=== PATIENT | female | born 1985 | race African-American/Black ===

== ENCOUNTER 2018-09-27 02:07 | Emergency (ER) | payer MEDICAID ==
[2018-09-27] MEDS ORDERED: Ketorolac 60 MG/2 ML SDV IM ONE (03:43)
--- NOTE | 2018-09-27 03:56 | EDM.PDOC ---
ED HPI GENERAL MEDICAL PROBLEM - General Chief Complaint: Back Pain or Injury Stated Complaint: BACK PAIN Time Seen by Provider: 09/27/18 03:53 Source of Information: Reports: Patient - History of Present Illness INITIAL COMMENTS - FREE TEXT/NARRATIVE: HISTORY AND PHYSICAL: History of present illness: [Patient presents with pain involving right shoulder girdle as well as right pectoralis major reproducible on palpation worsened by movement of her right arm no fever nausea vomiting chills sweats no trauma or injury arm neck or jaw no left-sided pain no diaphoresis or shortness of breath ] Review of systems: As per history of present illness and below otherwise all systems reviewed and negative. Past medical history: As per history of present illness and as reviewed below otherwise noncontributory. Surgical history: As per history of present illness and as reviewed below otherwise noncontributory. Social history: No reported history of drug or alcohol abuse. Family history: As per history of present illness and as reviewed below otherwise noncontributory. Physical exam: HEENT: Atraumatic, normocephalic, pupils reactive, negative for conjunctival pallor or scleral icterus, mucous membranes moist, throat clear, neck supple, nontender, trachea midline. Lungs: Clear to auscultation, breath sounds equal bilaterally, chest nontender. On the left, reproducible chest tenderness on insertion of packed nature as well is over infraspinatus and paraspinous muscles of thoracic spine Heart: S1S2, regular, negative for clicks, rubs, or JVD. Abdomen: Soft, nondistended, nontender. Negative for masses or hepatosplenomegaly. Negative for costovertebral tenderness. Pelvis: Stable nontender. Genitourinary: Deferred. Rectal: Deferred. Extremities: Atraumatic, negative for cords or calf pain. Neurovascular unremarkable. Neuro: Awake, alert, oriented. Cranial nerves II through XII unremarkable. Cerebellum unremarkable. Motor and sensory unremarkable throughout. Exam nonfocal. Diagnostics: [Lumbar spine was originally ordered and canceled his x-rays back the patient does not want to wait for any imaging UA/hCG ] Therapeutics: [Adult 60 IM Toradol Flexeril ] Impression: [ muscle spasm ] Definitive disposition and diagnosis as appropriate pending reevaluation and review of above. Upper Back Pain Score (Numeric/FACES): 8 - Related Data Allergies Allergy/AdvReac Type Severity Reaction Status Date / Time No Known Allergies Allergy Verified 09/27/18 02:47 Home Meds: Home Meds . [No Known Home Meds] 09/27/18 [History] Past Medical History HEENT History: Reports: None Cardiovascular History: Reports: None Respiratory History: Reports: Asthma [employer] History: Reports: Musculoskeletal History: Reports: None Neurological History: Reports: None Psychiatric History: Reports: None Hematologic History: Reports: None Immunologic History: Reports: None Oncologic (Cancer) History: Reports: None Dermatologic History: Reports: None - Infectious Disease History Infectious Disease History: Reports: Chicken Pox - Past Surgical History Head Surgeries/Procedures: Reports: None GI Surgical History: Reports: Hernia, Abdominal, Hernia Repair/Other Female Surgical History: Reports: Section, Tubal Ligation Social & Family History - Tobacco Use Smoking Status *Q: Never Smoker - Caffeine Use Caffeine Use: Reports: Coffee - Recreational Drug Use Recreational Drug Use: No ED ROS GENERAL - Review of Systems Review Of Systems: See Below ED EXAM, GENERAL - Physical Exam Exam: See Below Course - Vital Signs Last Recorded V/S: Last Vital Signs Temp 97.3 F 09/27/18 02:43 Pulse 93 09/27/18 02:43 Resp BP 155/108 H 09/27/18 02:43 Pulse Ox 98 09/27/18 02:43 - Orders/Labs/Meds Orders: Active Orders 24 hr Category Date Time Status Lumbar Spine 2 or 3V [CR] Stat Exams 09/27/18 02:11 Stop Req Labs: Laboratory Tests 09/27/18 09/27/18 Range/Units 02:56 02:56 Urine Color YELLOW Urine Appearance CLEAR Urine pH 6.0 (5.0-8.0) Ur Specific [place] 1.020 (1.001-1.035) Urine Protein NEGATIVE (NEGATIVE) mg/dL Urine Glucose (UA) NEGATIVE (NEGATIVE) mg/dL Urine Ketones NEGATIVE (NEGATIVE) mg/dL Urine Occult Blood MODERATE H (NEGATIVE) Urine Nitrite NEGATIVE (NEGATIVE) Urine Bilirubin NEGATIVE (NEGATIVE) Urine Urobilinogen 0.2 (<2.0) EU/dL Ur Leukocyte Esterase NEGATIVE (NEGATIVE) Urine RBC 1-3 (0-2/HPF) Urine WBC 0-1 (0-5/HPF) Ur Epithelial Cells FEW (NONE-FEW) Urine Bacteria RARE (NEGATIVE) Urine HCG, Qual NEGATIVE (NEGATIVE) Meds: Medications Discontinued Medications Generic Name Dose Route Start Last Admin Trade Name Bertram PRN Reason Stop Dose Admin Ketorolac Tromethamine 60 mg 09/27/18 03:43 Toradol IM 09/27/18 03:44 ONETIME ONE Departure - Departure Time of Disposition: 03:55 Disposition: Home, Self-Care 01 Condition: Good Clinical Impression: Muscle spasm - Discharge Information Referrals: PCP,None [Primary Care Provider] - Additional Instructions: The following information is given to patients seen in the emergency department who are being discharged to home. This information is to outline your options for follow-up care. We provide all patients seen in our emergency department with a follow-up referral. The need for follow-up, as well as the timing and circumstances, are variable depending upon the specifics of your emergency department visit. If you don't have a primary care physician on staff, we will provide you with a referral. We always advise you to contact your personal physician following an emergency department visit to inform them of the circumstance of the visit and for follow-up with them and/or the need for any referrals to a consulting specialist. The emergency department will also refer you to a specialist when appropriate. This referral assures that you have the opportunity for follow-up care with a specialist. All of these measure are taken in an effort to provide you with optimal care, which includes your follow-up. Under all circumstances we always encourage you to contact your private physician who remains a resource for coordinating your care. When calling for follow-up care, please make the office aware that this follow-up is from your recent emergency room visit. If for any reason you are refused follow-up, please contact the [facility] emergency department at and asked to speak to the emergency department charge nurse. - My Orders Last 24 Hours: My Active Orders 09/27/18 02:11 Lumbar Spine 2 or 3V [CR] Stat - Assessment/Plan Last 24 Hours: My Active Orders 09/27/18 02:11 Lumbar Spine 2 or 3V [CR] Stat
== END 2018-09-27 04:09 | disposition home or self-care (01) ==
LOC: MW.ED 02:07
DX: M62.838 Other muscle spasm (principal)
CPT/HCPCS: 81001; 81025; 96372; 99283; J1885

== ENCOUNTER 2020-10-22 10:55 | Emergency (ER) | payer SELFPAY ==
[2020-10-22] MEDS ORDERED: Sodium Chloride 0.9% 1,000 ML IV ONE (11:30)
[2020-10-22 12:02] LABS: BLOOD UREA NITROGEN,BUN 11 mg/dL (7.0-18.0); CARBON DIOXIDE,CO2 27.3 mmol/L (21.0-32.0); CHLORIDE,CL 102 mmol/L (98-107); GLUCOSE RANDOM 105 mg/dL (74-106); POTASSIUM,K 3.6 mmol/L (3.5-5.1); SODIUM,NA 140 mmol/L (136-145)
--- NOTE | 2020-10-22 13:28 | CT ---
HISTORY: Right lower quadrant/flank pain. TECHNIQUE: Noncontrast CT of the abdomen and pelvis. COMPARISON: No prior. FINDINGS: No focal liver parenchymal abnormality. Small gallstone within a not overly distended gallbladder. Spleen and adrenal glands are normal. No focal pancreatic abnormality. There is no renal calculus on either side. No hydronephrosis. No ureteral calculus. Multiple pelvic calcifications likely represent phleboliths. Urinary bladder does not appear excessively distended. - No small bowel obstruction. Extensive colonic diverticulosis without acute diverticulitis. Appendix measures 6-7 millimeters diameter. No specific periappendiceal inflammatory changes to suggest appendicitis. Small fat containing umbilical and supraumbilical hernias. There is asymmetry in the right compared to left ovarian size which could relate to the presence of a right ovarian cyst. There is no abdominal aortic aneurysm. - Lung bases are clear. - Degenerative changes of the hips. Degenerative arthrosis of the sacroiliac joints. There is asymmetric sclerosis about the left sacroiliac joint, much greater on the iliac side. This could relate to either osteitis condensans ilii or to chronic sacroiliitis. IMPRESSION: 1. Extensive colonic diverticulosis without diverticulitis. 2. Appendix measures 6-7 mm diameter without specific periappendiceal inflammatory changes. 3. Asymmetric right compared to left ovarian size may relate to an ovarian cyst. 4. No urinary calculus. 5. Gallstone within a not excessively distended gallbladder. Please note that all CT scans at this facility use dose modulation, iterative reconstruction, and/or weight-based dosing when appropriate to reduce radiation dose to as low as reasonably achievable. Dictated by Darrian Buenrostro MD @ 10/22/2020 1:27:[address] Darrian Buenrostro @ Oct 22 2020 1:27PM
--- NOTE | 2020-10-22 14:43 | US ---
INDICATION: CT showed cyst, follow-up rule out torsion, right lower quadrant pain TECHNIQUE: Ultrasound pelvis transabdominal and transvaginal for better assessment or to better visualize the endometrium. Real-time sonographic images with spectral and color Doppler imaging of the ovaries were obtained. COMPARISON: CT abdomen and pelvis October 22, 2020 FINDINGS: Uterus: 8.2 x 4.6 x 3.9 cm. Normal echotexture of the myometrium. No masses. Endometrium: Transvaginal imaging was performed to better evaluate the endometrium. Endometrial thickness measures 7.2 mm. There is minimal fluid in the lower uterine segment with likely small Nabothian cysts. Right ovary measures 2.3 x 2.8 x 2.2 cm and left ovary measures 2.7 x 1.9 x 2.4 cm. Mildly limited exam due to body habitus with likely a small dominant follicle within the right ovary measuring up to 2 centimeters. No evidence of ovarian cyst greater than 3 centimeters. Normal arterial and venous blood flow is demonstrated in both ovaries. Cul-de-sac: No significant free fluid. IMPRESSION: Redemonstration of previously seen dominant follicle within the right ovary. No evidence of ovarian cyst measuring greater than 3 centimeters. No evidence of torsion. Nonspecific fluid is seen in the endocervical and lower uterine segment canal. Dictated by Robbie Sanchez MD @ 10/22/2020 2:42:[address] Robbie Sanchez @ Oct 22 2020 2:42PM
[2020-10-22] MEDS ORDERED: cefTRIAXone 1 GM in Premix Bag 1 BAG IV ONE (14:54)
[2020-10-22 16:15] LABS: CORONAVIRUS COVID-19 NAA NEGATIVE (NEGATIVE); INFLUENZA A NAA NEGATIVE (NEGATIVE); INFLUENZA B NAA NEGATIVE (NEGATIVE)
--- NOTE | 2020-10-22 16:46 | EDM.PDOC ---
ED HPI GENERAL MEDICAL PROBLEM - General Chief Complaint: Abdominal Pain Stated Complaint: LOWER ABD PAIN Time Seen by Provider: 10/22/20 10:58 Source of Information: Reports: Patient History Limitations: Reports: No Limitations - History of Present Illness INITIAL COMMENTS - FREE TEXT/NARRATIVE: HISTORY AND PHYSICAL: History of present illness: Patient is a 35-year-old female who presents emergency room today with concern of right lower quadrant pain x2 to 3 days. Patient states initially, she was having right flank pain which radiated around to the side yesterday. Patient's states today, is primarily right lower quadrant pain. Patient states that she has felt nauseous. Patient states that she has not taken anything for her symptoms. Patient denies any other associated symptoms. Patient denies fever, chills, chest pain, shortness of breath, or cough. Denies headache, neck stiff ness, change in vision, syncope, or near syncope. Denies vomiting, diarrhea, constipation, or dysuria. Has not noted any blood in urine or stool. Patient has been eating and drinking appropriately. Review of systems: As per history of present illness and below otherwise all systems reviewed and negative. Past medical history: As per history of present illness and as reviewed below otherwise noncontributory. Surgical history: As per history of present illness and as reviewed below otherwise noncontributory. Social history: See social history for further information Family history: As per history of present illness and as reviewed below otherwise noncontributory. Physical exam: General: Patient is alert, oriented, and in no acute distress. Patient laying comfortably on exam table. Vitals stable and reviewed by me HEENT: Atraumatic, normocephalic, pupils equal and reactive bilaterally, negative for conjunctival pallor or scleral icterus, mucous membranes moist, TMs normal bilaterally, throat clear, neck supple, nontender, trachea midline. No drooling or trismus noted. No meningeal signs. No hot potato voice noted. Lungs: Clear to auscultation, breath sounds equal bilaterally, chest nontender. Heart: S1S2, regular rate and rhythm without overt murmur Abdomen: Soft, nondistended, moderate right lower quadrant tenderness without guarding, negative rebound. Negative for masses or hepatosplenomegaly. Negative for costovertebral tenderness. Pelvis: Stable nontender. Genitourinary: Deferred. Rectal: Deferred. Skin: Intact, warm, dry. No lesions or rashes noted. Extremities: Atraumatic, negative for cords or calf pain. Neurovascular unremarkable. Neuro: Awake, alert, oriented. Cranial nerves II through XII unremarkable. Cerebellum unremarkable. Motor and sensory unremarkable throughout. Exam nonfocal. Notes: Patient is a 35-year-old female, who presents to the ED today secondary to right lower quadrant abdominal pain x3 days. Upon arrival to the ED, patient is vitally stable and well-appearing on exam. However, she does have moderate right lower quadrant tenderness on exam. Will obtain lab work as well as abdominal pelvic CT. Mild derangements of CBC unremarkable. CMP unremarkable. Urinalysis does have 3-6 red blood cells, 2-5 white blood cells with 1+ bacteria and few epithelial cells. Negative leukocyte esterase, negative nitrate, negative hCG. Interpretation: Early urinary tract infection. Covid negative/influenza negative. Abdominal pelvic CT scan shows extensive colonic diverticulosis without diverticulitis. Appendix measuring upper limits of normal with 6 to 7 mm diameter without specific periappendiceal inflammatory changes. Asymmetric right compared to left ovarian size may be related to an ovarian cyst. No uterine calculus. Gallstones within a not excessively distended gallbladder. Due to the increase in size of the right ovary, will obtain transvaginal ultrasound. Transvaginal ultrasound shows a redemonstration of previously seen dominant follicle within the right ovary. No evidence of ovarian cyst measuring greater than 3 cm. No evidence of torsion. Nonspecific fluid is seen in the endocervical and lower uterine segment canal. Patient does have right lower quadrant tenderness on exam with an upper limit of normal appendix on CT. I did call and speak to the general surgeon on-call, Dr. Banda, and thoroughly discussed patient's case. He has come in to personally see and evaluate the patient. See his official consult note for further treatment and disposition. Given early urinary tract infection on urinalysis, will treat with Keflex and send urine for culture. Strict return precautions thoroughly discussed with patient. Signs symptoms that were prompt return to the ED thoroughly discussed with patient. Discussed importance for follow with the primary care provider and the general surgeon and to follow Dr. Banda's follow-up recommendations. Voices understanding and is agreeable to plan of care. Denies any further questions or concerns at this time. Diagnostics: CBC, CMP, UA, Lipase, Hcg, COVID Therapeutics: Patient was offered Toradol but she declines at this time, Rocephin, NS Prescription: Keflex Impression: Abdominal pain, right lower quadrant, unspecified Urinary tract infection, early Plan: 1. Take medication as prescribed. He can alternate ibuprofen and Tylenol as directed for pain and discomfort. 2. Follow-up with a primary care provider/general surgeon as discussed. Return to the ED as needed and as discussed. Definitive disposition and diagnosis as appropriate pending reevaluation and review of above. Right Lower Abdomen Pain Score (Numeric/FACES): 7 - Related Data Allergies Allergy/AdvReac Type Severity Reaction Status Date / Time No Known Allergies Allergy Verified 10/22/20 11:05 Home Meds: Home Meds cephALEXin [Keflex] 500 mg PO Q8H 7 Days #21 cap 10/22/20 [Rx] Past Medical History HEENT History: Reports: None Cardiovascular History: Reports: None Respiratory History: Reports: Asthma WHIPPER History: Reports: Musculoskeletal History: Reports: None Neurological History: Reports: None Psychiatric History: Reports: None Hematologic History: Reports: None Immunologic History: Reports: None Oncologic (Cancer) History: Reports: None Dermatologic History: Reports: None - Infectious Disease History Infectious Disease History: Reports: Chicken Pox - Past Surgical History Head Surgeries/Procedures: Reports: None GI Surgical History: Reports: Hernia, Abdominal, Hernia Repair/Other Female Surgical History: Reports: Section, Tubal Ligation Social & Family History - Tobacco Use Tobacco Use Status *Q: Never Tobacco User - Caffeine Use Caffeine Use: Reports: Coffee - Recreational Drug Use Recreational Drug Use: No ED ROS GENERAL - Review of Systems Review Of Systems: Comprehensive ROS is negative, except as noted in HPI. ED EXAM, GENERAL - Physical Exam Exam: See Below (see dictation) Course - Vital Signs Last Recorded V/S: Last Vital Signs Temp 98.6 F 10/22/20 11:05 Pulse 71 10/22/20 16:59 Resp 17 10/22/20 13:08 BP 157/91 H 10/22/20 13:08 Pulse Ox 98 10/22/20 16:59 - Orders/Labs/Meds Orders: Active Orders 24 hr Category Date Time Status Consult to Physician [CONS] Stat Cons 10/22/20 15:13 Active CULTURE URINE [MREF] Stat Lab 10/22/20 11:21 Received Labs: Laboratory Tests 10/22/20 10/22/20 10/22/20 Range/Units 05:27 11:20 11:20 WBC 5.65 (4.0-11.0) K/uL RBC 4.60 (4.30-5.90) M/uL Hgb 12.2 (12.0-16.0) g/dL Hct 38.5 (36.0-46.0) % MCV 83.7 (80.0-98.0) fL MCH 26.5 L (27.0-32.0) pg MCHC 31.7 (31.0-37.0) g/dL RDW Std Deviation 42.5 (28.0-62.0) fl RDW Coeff of Andrew 14 (11.0-15.0) % Plt Count 342 (150-400) K/uL MPV 10.20 (7.40-12.00) fL Neut % (Auto) 47.6 L (48.0-80.0) % Lymph % (Auto) 43.9 H (16.0-40.0) % [place] % (Auto) 5.8 (0.0-15.0) % Eos % (Auto) 2.3 (0.0-7.0) % Baso % (Auto) 0.4 (0.0-1.5) % Neut # (Auto) 2.7 (1.4-5.7) K/uL Lymph # (Auto) 2.5 H (0.6-2.4) K/uL [place] # (Auto) 0.3 (0.0-0.8) K/uL Eos # (Auto) 0.1 (0.0-0.7) K/uL Baso # (Auto) 0.0 (0.0-0.1) K/uL Nucleated RBC % 0.0 /100WBC Nucleated RBCs # 0 K/uL Sodium 140 (136-145) mmol/L Potassium 3.6 (3.5-5.1) mmol/L Chloride 102 (98-107) mmol/L Carbon Dioxide 27.3 (21.0-32.0) mmol/L BUN 11 (7.0-18.0) mg/dL Creatinine 0.9 (0.6-1.0) mg/dL Est Cr Clr Drug Dosing 69.66 mL/min Estimated GFR (MDRD) > 60.0 ml/min Glucose 105 (74-106) mg/dL Calcium 8.7 (8.5-10.1) mg/dL Total Bilirubin 0.3 (0.2-1.0) mg/dL AST 15 (15-37) IU/L ALT 22 (14-63) IU/L Alkaline Phosphatase 99 (46-116) U/L Total Protein 8.3 H (6.4-8.2) g/dL Albumin 3.6 (3.4-5.0) g/dL Globulin 4.7 H (2.6-4.0) g/dL Albumin/Globulin Ratio 0.8 L (0.9-1.6) Lipase (73-393) U/L Urine Color Urine Appearance Urine pH (5.0-8.0) Ur Specific [place] (1.001-1.035) Urine Protein (NEGATIVE) mg/dL Urine Glucose (UA) (NEGATIVE) mg/dL Urine Ketones (NEGATIVE) mg/dL Urine Occult Blood (NEGATIVE) Urine Nitrite (NEGATIVE) Urine Bilirubin (NEGATIVE) Urine Urobilinogen (<2.0) EU/dL Ur Leukocyte Esterase (NEGATIVE) Urine RBC (0-2/HPF) Urine WBC (0-5/HPF) Ur Epithelial Cells (NONE-FEW) Urine Bacteria (NEGATIVE) Urine Mucus (NONE-MOD) Urine HCG, Qual (NEGATIVE) Influenza Type A RNA NEGATIVE (NEGATIVE) Influenza Type B RNA NEGATIVE (NEGATIVE) SARS-CoV-2 RNA (BALDEMAR) NEGATIVE (NEGATIVE) 10/22/20 10/22/20 10/22/20 Range/Units 11:20 11:21 11:21 WBC (4.0-11.0) K/uL RBC (4.30-5.90) M/uL Hgb (12.0-16.0) g/dL Hct (36.0-46.0) % MCV (80.0-98.0) fL MCH (27.0-32.0) pg MCHC (31.0-37.0) g/dL RDW Std Deviation (28.0-62.0) fl RDW Coeff of Andrew (11.0-15.0) % Plt Count (150-400) K/uL MPV (7.40-12.00) fL Neut % (Auto) (48.0-80.0) % Lymph % (Auto) (16.0-40.0) % [place] % (Auto) (0.0-15.0) % Eos % (Auto) (0.0-7.0) % Baso % (Auto) (0.0-1.5) % Neut # (Auto) (1.4-5.7) K/uL Lymph # (Auto) (0.6-2.4) K/uL [place] # (Auto) (0.0-0.8) K/uL Eos # (Auto) (0.0-0.7) K/uL Baso # (Auto) (0.0-0.1) K/uL Nucleated RBC % /100WBC Nucleated RBCs # K/uL Sodium (136-145) mmol/L Potassium (3.5-5.1) mmol/L Chloride (98-107) mmol/L Carbon Dioxide (21.0-32.0) mmol/L BUN (7.0-18.0) mg/dL Creatinine (0.6-1.0) mg/dL Est Cr Clr Drug Dosing mL/min Estimated GFR (MDRD) ml/min Glucose (74-106) mg/dL Calcium (8.5-10.1) mg/dL Total Bilirubin (0.2-1.0) mg/dL AST (15-37) IU/L ALT (14-63) IU/L Alkaline Phosphatase (46-116) U/L Total Protein (6.4-8.2) g/dL Albumin (3.4-5.0) g/dL Globulin (2.6-4.0) g/dL Albumin/Globulin Ratio (0.9-1.6) Lipase 52 L (73-393) U/L Urine Color YELLOW Urine Appearance SLT CLOUDY Urine pH 6.0 (5.0-8.0) Ur Specific [place] 1.025 (1.001-1.035) Urine Protein NEGATIVE (NEGATIVE) mg/dL Urine Glucose (UA) NEGATIVE (NEGATIVE) mg/dL Urine Ketones NEGATIVE (NEGATIVE) mg/dL Urine Occult Blood MODERATE H (NEGATIVE) Urine Nitrite NEGATIVE (NEGATIVE) Urine Bilirubin NEGATIVE (NEGATIVE) Urine Urobilinogen 0.2 (<2.0) EU/dL Ur Leukocyte Esterase NEGATIVE (NEGATIVE) Urine RBC 3-6 (0-2/HPF) Urine WBC 2-5 (0-5/HPF) Ur Epithelial Cells FEW (NONE-FEW) Urine Bacteria 1+ H (NEGATIVE) Urine Mucus LIGHT (NONE-MOD) Urine HCG, Qual NEGATIVE (NEGATIVE) Influenza Type A RNA (NEGATIVE) Influenza Type B RNA (NEGATIVE) SARS-CoV-2 RNA (BALDEMAR) (NEGATIVE) Meds: Medications Discontinued Medications Generic Name Dose Route Start Last Admin Trade Name Freq PRN Reason Stop Dose Admin Sodium Chloride 1,000 mls @ 999 mls/hr 10/22/20 11:30 10/22/20 11:39 Normal Saline IV 10/22/20 12:30 999 mls/hr BOLUS ONE Administration Ceftriaxone Sodium/Dextrose 1 50 mls @ 100 mls/hr 10/22/20 14:54 10/22/20 15:34 gm/ Premix IV 10/22/20 15:23 100 mls/hr ONETIME ONE Administration Departure - Departure Time of Disposition: 16:45 Disposition: Home, Self-Care 01 Clinical Impression: Abdominal pain Qualifiers: Abdominal location: right lower quadrant Qualified Code(s): R10.31 - Right lower quadrant pain Urinary tract infection Qualifiers: Urinary tract infection type: acute cystitis Hematuria presence: without hematuria Qualified Code(s): N30.00 - Acute cystitis without hematuria - Discharge Information Prescriptions: cephALEXin [Keflex] 500 mg PO Q8H 7 Days #21 cap Instructions: Urinary Tract Infection, Adult, [id number], Abdominal Pain, Adult, [id number] Referrals: PCP,None [Primary Care Provider] - Forms: ED Department Discharge Additional Instructions: The following information is given to patients seen in the emergency department who are being discharged to home. This information is to outline your options for follow-up care. We provide all patients seen in our emergency department with a follow-up referral. The need for follow-up, as well as the timing and circumstances, are variable depending upon the specifics of your emergency department visit. If you don't have a primary care physician on staff, we will provide you with a referral. We always advise you to contact your personal physician following an emergency department visit to inform them of the circumstance of the visit and for follow-up with them and/or the need for any referrals to a consulting specialist. The emergency department will also refer you to a specialist when appropriate. This referral assures that you have the opportunity for follow-up care with a specialist. All of these measure are taken in an effort to provide you with optimal care, which includes your follow-up. Under all circumstances we always encourage you to contact your private p olindacian who remains a resource for coordinating your care. When calling for follow-up care, please make the office aware that this follow-up is from your recent emergency room visit. If for any reason you are refused follow-up, please contact the [facility] Emergency Department at and asked to speak to the emergency department charge nurse. [facility] [address] [place] [address] [id number] [address] [address] [facility] - General Surgery Professional Building [address] [place] [address], [address] [place] [address] 1. Take medication as prescribed. He can alternate ibuprofen and Tylenol as directed for pain and discomfort. 2. Follow-up with a primary care provider/general surgeon as discussed. Return to the ED as needed and as discussed. Sepsis Event Note (ED) - Evaluation Sepsis Screening Result: No Definite Risk - Focused Exam Vital Signs: Vital Signs Temp Pulse Resp BP Pulse Ox 10/22/20 16:59 71 98 10/22/20 13:08 81 17 157/91 H 97 10/22/20 12:38 67 158/91 H 98 10/22/20 12:08 70 16 162/95 H 99 10/22/20 11:05 98.6 F 87 18 98 - My Orders Last 24 Hours: My Active Orders 10/22/20 11:21 CULTURE URINE [MREF] Stat 10/22/20 15:13 Consult to Physician [CONS] Stat - Assessment/Plan Last 24 Hours: My Active Orders 10/22/20 11:21 CULTURE URINE [MREF] Stat 10/22/20 15:13 Consult to Physician [CONS] Stat
--- NOTE | 2020-10-22 19:37 | ER ---
HISTORY OF PRESENT ILLNESS: The patient is a pleasant 35-year-old female. She says about 3 days ago, she noticed some right lower back pain. Yesterday the pain somewhat radiated more into the front. Now she has both right lower and right back pain and this pain is also going into the hip and groin area. She rated the pain about 6/10. She denies any fevers or chills. The patient says she has had a little bit of nausea. She denies any changes to her bowel habits. She then came to the ER for evaluation. She did have a CT scan which showed appendix 6-7 mm in diameter without periappendiceal inflammatory changes. She also had some gallstones. She also had some diverticulosis without diverticulitis. MEDICATIONS: The patient denies any home medication. FAMILY HISTORY: The patient denies any family history. The patient has a family history of diabetes, thyroid, and heart disease run in the family. ALLERGIES: No known drug allergies. PAST SURGICAL HISTORY: 1. x2. 2. Tubal ligation. 3. Umbilical hernia repair. SOCIAL HISTORY: The patient denies any tobacco use. She occasionally uses marijuana and alcohol. REVIEW OF SYSTEMS: Complete 12+ review of systems was done and was negative per HPI. IMAGING: As per HPI and she also had a transvaginal ultrasound which was essentially normal. PHYSICAL EXAMINATION: GENERAL: The patient is lying comfortably at her ER bed. She is alert and oriented, in no acute distress. HEENT: Head is normocephalic and atraumatic. VITAL SIGNS: Temperature is 98.6, pulse is 71, blood pressure is 157/91, and saturating 98% on room air. LUNGS: Clear to auscultation bilaterally. No rhonchi or wheezing heard. HEART: Regular rate and rhythm. No murmur appreciated. ABDOMEN: Soft and nondistended. She does have some tenderness more on her right lower abdomen to palpation and around her right flank into her right lower back to palpation. EXTREMITIES: No edema. NEUROLOGIC: Grossly, no motor or neurologic deficits noted. LABORATORY DATA: White count is 5.65, hemoglobin is 12.2, and platelet count is 342. Sodium 140, potassium 3.6, chloride is 102, BUN is 11, and creatinine 0.9. She has some blood in her urine along with being positive for bacteria. Negative for COVID. ASSESSMENT AND PLAN: The patient is a 35-year-old female who has had back pain for the last 3 days and now radiates into the front and into the right hip and groin. She had a CT scan which was relatively unremarkable which showed normal white cell count. causing her pain in her back and front, likely it is potentially musculoskeletal originating from the back. I told the patient there is no way to 100% rule out appendicitis rather than doing appendectomy. However, her imaging shows a normal appendix along with normal white cell count and also pain started in her back. The patient does have urinary tract infection, which she is being treated for by the Medicine Team. the patient we could admit, just do an observations. The patient would like to go home. She will come back if symptoms get worse or do not improve. GHADA / MANSOOR /[id number]
== END 2020-10-22 17:00 | disposition home or self-care (01) ==
LOC: MW.ED 10:55
DX: N39.0 Urinary tract infection, site not specified (principal); Z20.822 Contact with and (suspected) exposure to COVID-19
CPT/HCPCS: 0240U; 36415; 74176; 76830; 80053; 81001; 81025; 83690; 85025; 87086; 96374; 99284; J0696; J7030